=== PATIENT | female | born 1950 | race Hispanic/Latino ===

== ENCOUNTER 2017-01-30 06:31 | Day surgery (SDC) | payer MEDICARE, OTHER ==
[2017-01-29 12:19] VITALS: BMI 24.8
[2017-01-30 07:05] LABS: ADD MANUAL DIFF? NO
[2017-01-30] MEDS ORDERED: Iodixanol 320 MG/ML 200 ML BOTTLE IV ONE (07:24)
[2017-01-30] MEDS ORDERED: Lidocaine 2% Inj (20ml) ONE (07:24)
[2017-01-30 07:29] LABS: BLOOD UREA NITROGEN 25 mg/dL (7-21); CALCIUM 9.4 mg/dL (8.4-10.5); CARBON DIOXIDE 28 mmol/L (21-33); CHLORIDE 107 mmol/L (98-107); GFR AFRICAN-AMERICAN > 60; GLUCOSE,RANDOM 99 mg/dL (70-110); POTASSIUM 4.1 mmol/L (3.6-5.0); SODIUM 143 mmol/L (132-148)
[2017-01-30 07:41] LABS: BASO # 0.03 K/mm3 (0.0-2.0); BASO % 0.5 % (0.0-3.0); EOS # 0.2 (0.0-0.7); EOS % 3.2 % (1.5-5.0); GRAN # 3.06 (1.4-6.5); GRAN % 54.9 % (50.0-68.0); LYMPH # 1.9 (1.2-3.4); LYMPH % 33.3 % (22.0-35.0); MEAN CELL VOLUME 91.1 fL (80.0-105.0); MEAN CORPUSCULAR HEMOGLOBIN 29.9 pg (25.0-35.0); MEAN CORPUSCULAR HGB CONC 32.9 g/dl (31.0-37.0); MEAN PLATELET VOLUME 10.6 fl (7.0-11.0); MONO # 0.5 (0.1-0.6); MONO % 8.1 % (1.0-6.0); PLATELET COUNT 218 10^3/uL (120.0-450.0); RED CELL DISTRIBUTION WIDTH 14.6 % (11.5-14.5); WHITE BLOOD COUNT 5.6 10^3/ul (4.5-11.0)
[2017-01-30 07:51] LABS: INR 0.94 (0.93-1.08); PARTIAL THROMBOPLASTIN TIME 26.4 Seconds (23.7-30.8)
[2017-01-30] MEDS ORDERED: Iohexol 350mgl/ml 50 ML ONE (08:44)
[2017-01-30] MEDS ORDERED: Midazolam 2 MG/2 ML VIAL ONE ×2 (08:44→09:10)
[2017-01-30] MEDS ORDERED: Iodixanol 320 MG/ML 100 ML BOTTLE IV ONE (08:46)
[2017-01-30] MEDS ORDERED: Sodium Chloride 0.45% 1,000 ML IV SCH (10:00)
[2017-01-30 10:09] VITALS: TEMP 97.6
--- NOTE | 2017-01-30 10:14 | CARDCATH ---
PROCEDURE DATE: 01/30/2017 HISTORY OF PRESENT ILLNESS: The patient is a 66-year-old woman with an old anterior wall myocardial infarction suffered down in [place] who presents with an abnormal stress test. Her LV function revealed a larger defect than previous. Because of this, cardiac catheterization was recommended. PROCEDURE: Left heart catheterization with coronary angiography, left ventriculogram, as well as a s upra-aortic valvular injection. The right femoral artery was cannulated with a 6-[place]oven[place] sheath. There were no complications. The findings on catheterization revealed a left ventricle that was dilated and diffusely hypokinetic with an estimated ejection fraction between 20 and 25%. There was no mitral regurgitation. Supra-aortic valvular injection revealed no aortic insufficiency. The right coronary artery was selectively cannulized and found to be a dominant vessel. The RCA reve aled diffuse atherosclerosis without critical lesions. The left main artery was unremarkable. The LAD and diagonal vessels revealed diffuse atherosclerosis. There is a patent stent in the mid LA D as well as in the proximal portion of the diagonal vessel. In the distal LAD, there is a 50% steno sis noted. The circumflex artery consisted of a high obtuse marginal branch. There is a patent stent noted. Th e circumflex artery was free of significant disease. Angio-Seal was used to close the femoral artery site. The patient tolerated the procedure well. SUMMARY: 1. The procedure revealed patent stents in the left anterior descending, diagonal vessels and circum flex artery. 2. There is a diffuse disease in the distal left anterior descending with a 50% stenosis in the dist al portion. 3. Left ventricular function is dilated and diffusely hypokinetic with an ejection fraction of 20-25 %. Given these findings, her coronary anatomy has not changed from her previous catheterization. We calixto l continue with her cardiac risk reduction program. Her hemodynamics are noted. Gerald Chavira MD cc: [id number] TT: 01/30/2017 10:13:34 tn
[2017-01-30 11:52] VITALS: RESP 20
[2017-01-30 14:44] VITALS: BP 139/79; PULSE 61; O2SAT 99
--- NOTE | 2017-01-30 15:31 | CARD ---
APPROVED REPORT EKG Measurement Heart [id number] <Conclusion> Sinus rhythm with occasional premature ventricular complexes Left axis deviation Left bundle branch block Abnormal ECG
== END 2017-01-30 15:30 | disposition home or self-care (01) ==
LOC: CATH 06:31
PROVIDERS: ATTEND Internal Medicine Cardiovascular Disease
DX: I25.10 Atherosclerotic heart disease of native coronary artery without angina pectoris (principal); I25.5 Ischemic cardiomyopathy; E78.00 Pure hypercholesterolemia, unspecified; Z95.5 Presence of coronary angioplasty implant and graft
CPT/HCPCS: 36415; 80048; 85025; 85610; 85730; 86850; 86900; 93005; 93458; 99152; C1760; C1769; C2629; J1644; J2250; J3010; J7030; J7040; Q9967 ×2